=== PATIENT | male | born 1985 | race Caucasian/White ===

== ENCOUNTER 2017-12-11 11:10 | Emergency (ER) | payer MEDICAID ==
[2017-12-11] MEDS ORDERED: SODIUM CHLORIDE 0.9% 1,000 ML IV ONE (12:43)
[2017-12-11] MEDS ORDERED: LORazepam 2 MG/ML VIAL IVP STA (12:44)
[2017-12-11] MEDS ORDERED: THIAMINE 100 MG TABLET PO STA (12:44)
[2017-12-11] MEDS ORDERED: ONDANSETRON 4 MG/2 ML VIAL IVP STA (12:44)
--- NOTE | 2017-12-11 12:45 | ED Physician Documentation ---
PD HPI OVERDOSE - Stated complaint Stated Complaint: ALCOHOL WITHDRAW - Chief complaint Chief Complaint: MHE - History obtained from History obtained from: Patient - History of Present Illness Timing - onset: Other (He has been drinking steadily and heavily for a few weeks now. Vodka at all hours of the day. Last drink was last night and he was vomiting last night but no hematemesis. He has continued nausea and no appetite. He did have brief auditory hallucinations last night. No history of seizures. He does not know if he might still be intoxicated. He denies any other ongoing substance issues.) Review of Systems Ten Systems: 10 systems reviewed and negative Constitutional: reports: Reviewed and negative Cardiac: reports: Reviewed and negative Respiratory: reports: Reviewed and negative PD PAST MEDICAL HISTORY - Past Medical History Cardiovascular: None Respiratory: None Endocrine/Autoimmune: None GI: None : None HEENT: Other Psych: None Musculoskeletal: None Derm: None - Past Surgical History Past Surgical History: No - Present Medications Home Medications: Ambulatory Orders Medication Instructions Recorded Confirmed Lorazepam [Ativan] 1 mg PO TID PRN #15 tablet 12/11/17 - Allergies Allergies/Adverse Reactions: Allergies Allergy/AdvReac Type Severity Reaction Status Date / Time Sulfa (Sulfonamide AdvReac Unknown Verified 12/11/17 11:17 Antibiotics) - Social History Does the pt smoke?: No Smoking Status: Never smoker Does the pt drink ETOH?: Yes Does the pt have substance abuse?: No - Family History Family history: reports: Non contributory - Immunizations Immunizations are current?: Yes PD ED PE NORMAL - Vitals Vital signs reviewed: Yes - General General: Alert and oriented X 3, No acute distress, Other (He is shaky but cogent and coherent.) - HEENT HEENT: PERRL, EOMI - Neck Neck: Supple, no meningeal sign, No bony TTP - Cardiac Cardiac: RRR, No murmur - Respiratory Respiratory: No respiratory distress, Clear bilaterally - Abdomen Abdomen: Normal bowel sounds, Soft, Non tender - Back Back: No CVA TTP, No spinal TTP - Derm Derm: Normal color, Warm and dry - Extremities Extremities: No edema, No calf tenderness / cord - Neuro Neuro: Alert and oriented X 3, Normal speech Eye Opening: Spontaneous Motor: Obeys Commands Verbal: Oriented GCS Score: 15 - Psych Psych: Normal mood, Normal affect Results - Vitals Vitals: Vital Signs - 24 hr 12/11/17 11:12 Temperature 37.3 C Heart Rate 86 Respiratory 16 Rate Blood Pressure 147/108 H O2 Saturation 98 Oxygen O2 Source Room air - Labs Labs: Laboratory Tests 12/11/17 12/11/17 12/11/17 12:30 12:30 12:30 WBC 4.3 L RBC 5.26 Hgb 16.6 Hct 47.9 MCV 91.1 MCH 31.5 H MCHC 34.6 RDW 12.9 Plt Count 258 MPV 7.9 Neut # (Auto) 2.5 Lymph # (Auto) 1.2 L [place] # (Auto) 0.5 Eos # (Auto) 0.1 Baso # (Auto) 0.0 Absolute Nucleated RBC 0.00 Nucleated RBC % 0.0 PT 11.0 INR 1.0 Sodium 137 Potassium 3.8 Chloride 101 Carbon Dioxide 26 Anion Gap 10.0 BUN 11 Creatinine 0.8 Estimated GFR (MDRD) 114 Glucose 115 H Calcium 9.1 Magnesium Total Bilirubin 1.5 H AST 27 ALT 21 Alkaline Phosphatase 80 Total Protein 7.7 Albumin 4.5 Globulin 3.2 Albumin/Globulin Ratio 1.4 Lipase 36 Ethyl Alcohol 62.9 12/11/17 12:30 WBC RBC Hgb Hct MCV MCH MCHC RDW Plt Count MPV Neut # (Auto) Lymph # (Auto) [place] # (Auto) Eos # (Auto) Baso # (Auto) Absolute Nucleated RBC Nucleated RBC % PT INR Sodium Potassium Chloride Carbon Dioxide Anion Gap BUN Creatinine Estimated GFR (MDRD) Glucose Calcium Magnesium 1.9 Total Bilirubin AST ALT Alkaline Phosphatase Total Protein Albumin Globulin Albumin/Globulin Ratio Lipase Ethyl Alcohol PD MEDICAL DECISION MAKING - ED course ED course: 32-year-old gentleman presents with modest alcohol withdrawal, treated with IV fluids, oral thiamine, and IV Ativan. Seen by the manager social services and options for outpatient treatment were discussed. - Sepsis Event Vital Signs: Vital Signs - 24 hr 12/11/17 11:12 Temperature 37.3 C Heart Rate 86 Respiratory 16 Rate Blood Pressure 147/108 H O2 Saturation 98 Oxygen O2 Source Room air Departure - Departure Disposition: 01 Home, Self Care Clinical Impression: Alcohol withdrawal syndrome Qualifiers: Complication of substance-induced condition: uncomplicated Qualified Code(s): F10.230 - Alcohol dependence with withdrawal, uncomplicated Condition: Good Record reviewed to determine appropriate education?: Yes Instructions: ED Withdrawal Alcohol Prescriptions: Lorazepam [Ativan] 1 mg PO TID PRN #15 tablet PRN Reason: Anxiety Comments: You can take the prescribed medication for alcohol withdrawal symptoms. Do not drink or drive with it. Do not drink at all. Follow the instructions of the manager social services regarding rehab and counseling. Return if worse. Your blood pressure was elevated today on check into the emergency department. This does not mean that you have hypertension, it is a common phenomenon to come to the emergency department and have elevated blood pressure. I recommend that you see your primary care physician within the week to have it rechecked when you are feeling better.
[2017-12-11 12:51] LABS: BASOPHILS % (AUTO) 0.9 %; EOSINOPHILS # (AUTO) 0.1 10^3/uL (0.0-0.7); EOSINOPHILS % (AUTO) 1.6 %; HGB - HEMOGLOBIN 16.6 g/dL (14.0-18.0); LYMPHOCYTES # (AUTO) 1.2 10^3/uL (1.5-3.5); MEAN CORPUSCULAR HEMOGLOBIN 31.5 pg (27.0-31.0); MEAN CORPUSCULAR HGB CONC 34.6 g/dL (32.0-36.0); MEAN CORPUSCULAR VOLUME 91.1 fL (80.0-94.0); MEAN PLATELET VOLUME 7.9 fL (7.4-11.4); MONOCYTES # (AUTO) 0.5 10^3/uL (0.0-1.0); MONOCYTES % (AUTO) 11.5 %; NEUTROPHILS # (AUTO) 2.5 10^3/uL (1.5-6.6); PLT - PLATELET COUNT 258 10^3/uL (130-450); RED BLOOD COUNT 5.26 10^6/uL (4.70-6.10); RED CELL DISTRIBUTION WIDTH 12.9 % (12.0-15.0); WHITE BLOOD COUNT 4.3 x10^3/uL (4.8-10.8)
[2017-12-11 13:03] LABS: ALBUMIN 4.5 g/dL (3.2-5.5); ALBUMIN/GLOBULIN RATIO 1.4 (1.0-2.2); BILIRUBIN,TOTAL 1.5 mg/dL (0.2-1.0); CALCIUM 9.1 mg/dL (8.5-10.3); CREATININE 0.8 mg/dL (0.6-1.2); TOTAL PROTEIN 7.7 g/dL (6.7-8.2)
[2017-12-11 15:06] VITALS: BP 150/86
== END 2017-12-11 15:06 | disposition home or self-care (01) ==
LOC: ED 11:10
DX: F10.230 Alcohol dependence with withdrawal, uncomplicated (principal); R03.0 Elevated blood-pressure reading, without diagnosis of hypertension
CPT/HCPCS: 36415; 80053; 80320; 83690; 83735; 85025; 85610; 96361; 96374; 99283; A9270; J2060

== ENCOUNTER 2018-02-10 22:04 | Emergency (ER) | payer MEDICAID ==
[2018-02-10] MEDS ORDERED: SODIUM CHLORIDE 0.9% 1,000 ML IV ONE (22:28)
[2018-02-10] MEDS ORDERED: ONDANSETRON 4 MG/2 ML VIAL IVP STA (22:29)
[2018-02-10 22:39] LABS: BASOPHILS # (AUTO) 0.1 10^3/uL (0.0-0.1); BASOPHILS % (AUTO) 0.4 %; HGB - HEMOGLOBIN 17.6 g/dL (14.0-18.0); LYMPHOCYTES # (AUTO) 1.5 10^3/uL (1.5-3.5); MEAN CORPUSCULAR HEMOGLOBIN 30.8 pg (27.0-31.0); MEAN CORPUSCULAR HGB CONC 33.1 g/dL (32.0-36.0); MEAN PLATELET VOLUME 7.8 fL (7.4-11.4); MONOCYTES # (AUTO) 0.4 10^3/uL (0.0-1.0); MONOCYTES % (AUTO) 2.6 %; NEUTROPHILS # (AUTO) 14.4 10^3/uL (1.5-6.6); PLT - PLATELET COUNT 354 10^3/uL (130-450); RED CELL DISTRIBUTION WIDTH 13.4 % (12.0-15.0); WHITE BLOOD COUNT 16.4 x10^3/uL (4.8-10.8)
[2018-02-10 22:53] LABS: ALBUMIN/GLOBULIN RATIO 1.4 (1.0-2.2); BILIRUBIN,TOTAL 1.1 mg/dL (0.2-1.0); CALCIUM 8.9 mg/dL (8.5-10.3); CREATININE 1.2 mg/dL (0.6-1.2); TOTAL PROTEIN 8.5 g/dL (6.7-8.2)
--- NOTE | 2018-02-11 00:03 | ED Physician Documentation ---
PD HPI NVD - Stated complaint Stated Complaint: ETOH - Chief complaint Chief Complaint: Abd Pain - History obtained from History obtained from: Patient - History of Present Illness Timing - duration: Days Timing - details: Gradual onset Pain level now: 0 Associated symptoms: Abdominal pain. No: Fever Improved by: Other (nothing) Worsened by: Other (nothing) Recently seen: Emergency Dept (T+R 2 months ago for similar issue) - Additonal information Additional information: patient says he has been drinking alcohol for past several days, last drink was 4-5 hours ago. he is vague in explaining why he came to ED tonight. he also says he has mild, intermittent cramping left-sided abdominal discomfort and noted small amount blood in stool recently Review of Systems Constitutional: reports: Reviewed and negative Cardiac: reports: Reviewed and negative Respiratory: reports: Reviewed and negative GI: reports: Abdominal Pain, Nausea, Bloody / black stool. denies: Vomiting, Constipation, Diarrhea, Hematemesis PD PAST MEDICAL HISTORY - Past Medical History Cardiovascular: None Respiratory: None Endocrine/Autoimmune: None GI: None : None HEENT: Other Psych: None Musculoskeletal: None Derm: None - Past Surgical History Past Surgical History: No - Present Medications Home Medications: Ambulatory Orders Medication Instructions Recorded Confirmed Lorazepam [Ativan] 1 mg PO TID PRN #15 tablet 12/11/17 - Allergies Allergies/Adverse Reactions: Allergies Allergy/AdvReac Type Severity Reaction Status Date / Time Sulfa (Sulfonamide AdvReac Unknown Verified 12/11/17 11:17 Antibiotics) - Social History Does the pt smoke?: No Smoking Status: Never smoker Does the pt drink ETOH?: Yes Does the pt have substance abuse?: No - Immunizations Immunizations are current?: Yes - POLST Patient has POLST: No PD ED PE NORMAL - Vitals Vital signs reviewed: Yes - General General: Alert and oriented X 3, No acute distress, Well developed/nourished - HEENT HEENT: Moist mucous membranes - Cardiac Cardiac: RRR, No murmur - Respiratory Respiratory: No respiratory distress, Clear bilaterally - Abdomen Abdomen: Normal bowel sounds, Soft, Non tender, Non distended - Derm Derm: Normal color, Warm and dry - Extremities Extremities: No edema - Neuro Neuro: Alert and oriented X 3 Eye Opening: Spontaneous Motor: Obeys Commands Verbal: Oriented GCS Score: 15 Results - Vitals Vitals: Oxygen O2 Source Room air - Labs Labs: Laboratory Tests 02/10/18 02/10/18 22:30 22:30 WBC 16.4 H RBC 5.70 Hgb 17.6 Hct 53.0 H MCV 93.0 MCH 30.8 MCHC 33.1 RDW 13.4 Plt Count 354 MPV 7.8 Neut # (Auto) 14.4 H Lymph # (Auto) 1.5 [place] # (Auto) 0.4 Eos # (Auto) 0.0 Baso # (Auto) 0.1 Absolute Nucleated RBC 0.02 Nucleated RBC % 0.1 Sodium 141 Potassium 4.2 Chloride 99 L Carbon Dioxide 17 L Anion Gap 25.0 H BUN 22 H Creatinine 1.2 Estimated GFR (MDRD) 71 L Glucose 89 Calcium 8.9 Total Bilirubin 1.1 H AST 50 H ALT 39 Alkaline Phosphatase 110 Total Protein 8.5 H Albumin 5.0 Globulin 3.5 Albumin/Globulin Ratio 1.4 Lipase 22 Ethyl Alcohol 256.1 PD MEDICAL DECISION MAKING - ED course Complexity details: reviewed old records, reviewed results, re-evaluated patient, considered differential, d/w patient ED course: given IV fluids, zofran, and lorazepam. he slept for a few hours and, in the AM, he says he feels well and requests discharge home. I offered services for discussion of inpatient options for rehab/detox, but he declines. Departure - Departure Disposition: 01 Home, Self Care Clinical Impression: Alcohol abuse Alcoholic gastritis Qualifiers: Chronicity: acute Gastritis bleeding: presence of bleeding unspecified Qualified Code(s): K29.20 - Alcoholic gastritis without bleeding Condition: Good Instructions: ED Withdrawal Alcohol, ED Gastritis, ED Alcohol Abuse Follow-Up: [facility] [Provider Group] [facility] [Provider Group] Comments: You have been provided with a hand-written prescription for chlordiazepoxide. It is to be tapered over 4 days as written on the prescription label. Do not drink any alcohol when taking this medication. You should not drive nor work while taking this medication. Discharge Date/Time: 02/11/18 05:28
[2018-02-11] MEDS ORDERED: SODIUM CHLORIDE 0.9% 1,000 ML IV ONE (00:15)
[2018-02-11] MEDS ORDERED: ONDANSETRON 4 MG/2 ML VIAL IVP STA (00:53)
[2018-02-11] MEDS ORDERED: LORazepam 2 MG/ML VIAL IVP STA (01:24)
[2018-02-11 05:25] VITALS: BP 131/78
== END 2018-02-11 05:28 | disposition home or self-care (01) ==
LOC: ED 22:04
DX: F10.10 Alcohol abuse, uncomplicated (principal); K29.20 Alcoholic gastritis without bleeding
CPT/HCPCS: 36415; 80053; 80320; 83690; 85025; 96361; 96374; 96375; 96376; 99283; 99284; J2060

== ENCOUNTER 2018-12-31 19:03 | Emergency (ER) | payer MEDICAID ==
[2018-12-31 20:43] LABS: EOSINOPHILS % (AUTO) 0.3 %; LYMPHOCYTES # (AUTO) 1.4 10^3/uL (1.5-3.5); LYMPHOCYTES % (AUTO) 34.2 %; MEAN CORPUSCULAR HEMOGLOBIN 31.7 pg (27.0-31.0); MEAN CORPUSCULAR HGB CONC 34.9 g/dL (32.0-36.0); MEAN CORPUSCULAR VOLUME 90.7 fL (80.0-94.0); MONOCYTES # (AUTO) 0.4 10^3/uL (0.0-1.0); MONOCYTES % (AUTO) 9.4 %; NEUTROPHILS # (AUTO) 2.2 10^3/uL (1.5-6.6); NEUTROPHILS % (AUTO) 55.1 %; PLT - PLATELET COUNT 366 10^3/uL (130-450); RED BLOOD COUNT 5.37 10^6/uL (4.70-6.10); RED CELL DISTRIBUTION WIDTH 12.7 % (12.0-15.0)
[2018-12-31 20:57] LABS: ACETAMINOPHEN < 10 ug/mL (10-30); ALBUMIN 4.8 g/dL (3.2-5.5); ALBUMIN/GLOBULIN RATIO 1.4 (1.0-2.2); ALKALINE PHOSPHATASE 78 IU/L (42-121); ALT ALANINE AMINOTRANSFERASE 25 IU/L (10-60); AST ASPARTATE AMINOTRANSFERASE 29 IU/L (10-42); BILIRUBIN,TOTAL 0.6 mg/dL (0.2-1.0); BUN - BLOOD UREA NITROGEN 8 mg/dL (6-20); CARBON DIOXIDE - CO2 28 mmol/L (21-32); CHLORIDE 103 mmol/L (101-111); GFR - MDRD 87 (>89); GLUCOSE 123 mg/dL (70-100); LIPASE 31 U/L (22-51); SALICYLATE < 6.0 mg/dL; SODIUM 144 mmol/L (135-145); TOTAL PROTEIN 8.3 g/dL (6.7-8.2)
[2018-12-31] MEDS ORDERED: FOLIC ACID INJ 1 MG, THIAMINE INJ 100 MG, MAGNESIUM SULFATE 2 GM, MULTIVITAMIN 10 ML in... IV STA ×5 (22:28)
[2018-12-31] MEDS ORDERED: ONDANSETRON 4 MG/2 ML VIAL IVP STA (22:29)
[2018-12-31] MEDS ORDERED: PANTOPRAZOLE 40 MG VIAL IVP STA (22:30)
[2018-12-31] MEDS ORDERED: MAG HYDROX/AL HYDROX/SIMETH 30 ML UDC PO STA (22:30)
[2018-12-31] MEDS ORDERED: SUCRALFATE 1 GM/10 ML UDC PO STA (22:30)
[2018-12-31] MEDS ORDERED: FAMOTIDINE 20 MG/2 ML VIAL IVP STA (22:30)
--- NOTE | 2018-12-31 22:31 | ED Physician Documentation ---
History of Present Illness - Stated complaint Stated Complaint: N/V - Chief complaint Chief Complaint: General - History obtained from History obtained from: Patient - History of Present Illness Pain level max: 5 Pain level now: 4 Improved by: nothing Worsened by: etoh - Additonal information Additional information: 33-year-old male states that he has been binge drinking the past 2 weeks. He states that he started vomiting today. No blood. States he does this a few times a year. Has never had seizures from withdrawals. States he feels dehydrated. Having mild epigastric pain as well. States he has not ate anything for a few days. Worse with alcohol. Nothing makes it better Review of Systems Constitutional: denies: Fever, Chills Cardiac: denies: Chest pain / pressure Respiratory: denies: Cough GI: reports: Nausea, Vomiting Skin: denies: Rash Musculoskeletal: denies: Neck pain, Back pain Neurologic: denies: Seizure, Confused, Head injury, LOC Psychiatric: denies: Hallucinations PD PAST MEDICAL HISTORY - Past Medical History Past Medical History: Yes Cardiovascular: Deep vein thrombosis Respiratory: Other Neuro: None Endocrine/Autoimmune: None GI: None : None HEENT: None Psych: None Musculoskeletal: None Derm: None - Past Surgical History Past Surgical History: No - Present Medications Home Medications: Ambulatory Orders Medication Instructions Recorded Confirmed Lorazepam [Ativan] 1 mg PO TID PRN #15 tablet 12/11/17 Esomeprazole Magnesium [Nexium] 20 mg PO DAILY #30 capsule. 01/01/19 Ondansetron Odt [Zofran] 4 mg TL Q6H PRN #10 tablet 01/01/19 - Allergies Allergies/Adverse Reactions: Allergies Allergy/AdvReac Type Severity Reaction Status Date / Time Sulfa (Sulfonamide AdvReac Unknown Verified 12/31/18 19:08 Antibiotics) - Social History Does the pt smoke?: No Smoking Status: Never smoker Does the pt drink ETOH?: Yes Does the pt have substance abuse?: Yes Substance Use and Type: Marijuana - Immunizations Immunizations are current?: Yes - POLST Patient has POLST: No PD ED PE NORMAL - Vitals Vital signs reviewed: Yes - General General: Alert and oriented X 3, No acute distress, Well developed/nourished - HEENT HEENT: Moist mucous membranes - Neck Neck: Supple, no meningeal sign - Cardiac Cardiac: RRR, Strong equal pulses - Respiratory Respiratory: No respiratory distress, Clear bilaterally - Abdomen Abdomen: Normal bowel sounds, Soft, Non tender, Non distended - Derm Derm: Warm and dry - Extremities Extremities: No edema - Neuro Neuro: Alert and oriented X 3 - Psych Psych: Normal mood, Normal affect Results - Vitals Vitals: Vital Signs - 24 hr 12/31/18 12/31/18 01/01/19 19:08 21:45 00:28 Temperature 37 C 36.9 C Heart Rate 96 83 86 Respiratory 15 20 16 Rate Blood Pressure 127/90 H 150/89 H 142/77 H O2 Saturation 96 96 96 01/01/19 01:22 Temperature Heart Rate 82 Respiratory 12 Rate Blood Pressure 131/83 H O2 Saturation 97 Oxygen O2 Source Room air - Labs Labs: Laboratory Tests 12/31/18 12/31/18 12/31/18 20:36 20:36 20:36 WBC 4.0 L RBC 5.37 Hgb 17.0 Hct 48.7 MCV 90.7 MCH 31.7 H MCHC 34.9 RDW 12.7 Plt Count 366 MPV 9.0 Neut # (Auto) 2.2 Lymph # (Auto) 1.4 L [place] # (Auto) 0.4 Eos # (Auto) 0.0 Baso # (Auto) 0.0 Absolute Nucleated RBC 0.00 Nucleated RBC % 0.0 Sodium 144 Potassium 3.8 Chloride 103 Carbon Dioxide 28 Anion Gap 13.0 BUN 8 Creatinine 1.0 Estimated GFR (MDRD) 87 L Glucose 123 H Calcium 9.0 Total Bilirubin 0.6 AST 29 ALT 25 Alkaline Phosphatase 78 Total Protein 8.3 H Albumin 4.8 Globulin 3.5 Albumin/Globulin Ratio 1.4 Lipase 31 TSH 2.08 Salicylates < 6.0 Acetaminophen < 10 L Ethyl Alcohol 329.4 PD MEDICAL DECISION MAKING - ED course Complexity details: reviewed results, re-evaluated patient, considered differential, d/w patient ED course: 33-year-old male with what appears to be alcoholic gastritis. Ambulating with a steady gait. Given a banana bag, Protonix. Given a GI cocktail. Also given Zofran. Feels much better and is tolerating p.o. without difficulty. We will prescribe a PPI for home as well as Zofran. Patient will follow-up with his doctor for further care. Patient counseled regarding signs and symptoms for which I believe and urgent re-evaluation would be necessary. Patient with good understanding of and agreement to plan and is comfortable going home at this time This document was made in part using voice recognition software. While efforts are made to proofread this document, sound alike and grammatical errors may occur. Does not want to go to rehab or detox. Departure - Departure Disposition: 01 Home, Self Care Clinical Impression: Alcoholic gastritis Qualifiers: Chronicity: acute Gastritis bleeding: without bleeding Qualified Code(s): K29.20 - Alcoholic gastritis without bleeding Condition: Good Instructions: ED Gastritis Follow-Up: your,doctor in 1 week [Other] Prescriptions: Esomeprazole Magnesium [Nexium] 20 mg PO DAILY #30 capsule. Ondansetron Odt [Zofran] 4 mg TL Q6H PRN #10 tablet PRN Reason: Nausea / Vomiting Comments: Return if you worsen. Drink plenty of water. Discharge Date/Time: 01/01/19 01:24
[2018-12-31] MEDS ORDERED: THIAMINE 100 MG/1 ML 2 ML MDV ONE (22:50)
[2019-01-01] MEDS ORDERED: chlordiazePOXIDE 25 MG CAPSULE PO STA (00:02)
[2019-01-01 01:24] VITALS: BP 131/83
== END 2019-01-01 01:24 | disposition home or self-care (01) ==
LOC: ED 19:03
DX: K29.20 Alcoholic gastritis without bleeding (principal); F10.20 Alcohol dependence, uncomplicated
CPT/HCPCS: 36415; 80053; 80307; 80320; 80329; 83690; 84443; 85025; 96365; 96375; 99284; A9270; J3411